=== PATIENT | female | born 1990 ===

== ENCOUNTER 2017-11-15 09:23 | Emergency (ER) | payer MEDICAID ==
[2017-11-15 09:24] VITALS: BMI 17.2
[2017-11-15 09:39] VITALS: BP 109/71; PULSE 89; RESP 16; TEMP 97; O2SAT 97
--- NOTE | 2017-11-15 09:54 | ED PDOC ---
HPI: Skin/Bite Injury Time Seen by Provider: 11/15/17 09:35 Chief Complaint (Nursing): Abnormal Skin Integrity History Per: Patient History/Exam Limitations: no limitations Onset/Duration Of Symptoms: Gradual (1 week), Worse Since (today) Location Of Injury: Right: Arm (axilla) Quality Of Symptoms: Painful, Swollen Severity: Moderate Additional History Per: Patient Additional Complaint(s): acc to pt she has an abscess in her right axilla x 1 week. similar sx in the past. chronically to axilla and groin. no f/c/n/v. Past Medical History Reviewed: Historical Data, Nursing Documentation, Vital Signs Vital Signs: Last Vital Signs Temp 97 F L 11/15/17 09:37 Pulse 89 11/15/17 09:37 Resp 16 11/15/17 09:37 BP 109/71 11/15/17 09:37 Pulse Ox 97 11/15/17 09:56 - Medical History PMH: Asthma Denies: Chronic Kidney Disease - Family History Family History: States: Unknown Family Hx - Living Arrangements Living Arrangements: With Family - Social History Drugs: Denies - Immunization History Hx Influenza Vaccination: Yes (up to date) Hx Pneumococcal Vaccination: No - Home Medications Home Medications: Ambulatory Orders Medication Instructions Recorded Doxycycline Monohydrate 100 mg PO BID 7 Days #14 capsule 11/15/17 Naproxen 500 mg PO BID PRN #20 tablet 11/15/17 - Allergies Allergies/Adverse Reactions: Allergies Allergy/AdvReac Type Severity Reaction Status Date / Time No Known Allergies Allergy Verified 11/15/17 09:31 Review of Systems ROS Statement: Except As Marked, All Systems Reviewed And Found Negative Constitutional: Negative for: Fever, Chills Cardiovascular: Negative for: Chest Pain Respiratory: Negative for: Cough, Shortness of Breath Gastrointestinal: Negative for: Nausea, Vomiting, Abdominal Pain Musculoskeletal: Positive for: Arm Pain (left axilla) Skin: Negative for: Rash Neurological: Negative for: Weakness, Numbness, Headache Physical Exam - Reviewed Nursing Documentation Reviewed: Yes Vital Signs Reviewed: Yes - Physical Exam Appears: Positive for: Uncomfortable Head Exam: Positive for: ATRAUMATIC, NORMAL INSPECTION, NORMOCEPHALIC Skin: Positive for: Normal Color, Warm, Dry. Negative for: Rash Eye Exam: Positive for: Normal appearance Neck: Positive for: Normal, Painless ROM, Supple. Negative for: Decreased ROM, Limited ROM, Trachea Midline Cardiovascular/Chest: Positive for: Regular Rate, Rhythm, Chest Non Tender. Negative for: Edema, Gallop, Bradycardia, Tachycardia Respiratory: Positive for: Normal Breath Sounds. Negative for: Decreased Breath Sounds, Accessory Muscle Use, Crackles, Rales, Rhonchi, Stridor, Wheezing Pulses-Radial (L): 2+ Pulses-Radial (R): 2+ Gastrointestinal/Abdominal: Positive for: Normal Exam, Bowel Sounds, Soft. Negative for: Tenderness Back: Positive for: Normal Inspection. Negative for: L CVA Tenderness, R CVA Tenderness Extremity: Positive for: Normal ROM, Other (moderate abscess to right axilla approx 4 cm, hand nvi mild erythema no surrounding cellulitis, hand nvi) Neurologic/Psych: Positive for: Alert, adult school teacher II-XII, Oriented. Negative for: Motor/Sensory Deficits - ECG O2 Sat by Pulse Oximetry: 97 Pulse Ox Interpretation: Normal - Progress ED Course And Treament: sx c/w hidradenitis supparative. will f/u in clinic, i&D perffered with resident using my supervision. pt agree's ith plan and leaves ambulatory and in good spirits. Re-evaluation Time: 11:20 Condition: Improved Disposition - Clinical Impression Clinical Impression: Abscess of axilla, right - Patient ED Disposition Is Patient to be Admitted: No Counseled Patient/Family Regarding: Studies Performed, Diagnosis, Need For Followup, Rx Given - Disposition Referrals: [facility] [place] [Outside] (3 days for wound check and packing removal) Disposition: Routine/Home Disposition Time: 11:35 Condition: GOOD Prescriptions: Doxycycline Monohydrate 100 mg PO BID 7 Days #14 capsule Naproxen 500 mg PO BID PRN #20 tablet PRN Reason: Pain, Moderate (4-7) Instructions: Abscess Incision and Drainage (DC) Forms: [employer] (Lithuanian) - Incision & Drainage Of Abscess Anesthesia: Lidocaine 1%, With Epi Prep Used: Sterile Water, Betadine Procedure: Incised W/Scalpel Blade#: (11), Drained Pus, Irrigated Cavity W/ Saline, Probed To Break Up Loculations, Packed W/Gauze, Cultures Obtained And Sent To Lab (performed with resident)
[2017-11-15] MEDS ORDERED: Oxycodone/Acetaminophen 5/325 mg Tab PO STA (10:32)
[2017-11-15] MEDS ORDERED: Oxycodone/Acetaminophen 5/325 mg Tab ONE (10:38)
[2017-11-15] MEDS ORDERED: Lidocaine/Epi 1% 1:100000 20 ML IJ ONE (10:49)
[2017-11-15] MEDS ORDERED: Lidocaine 1% w Epi 1:100,000 Inj ONE (10:55)
[2017-11-15] MEDS ORDERED: Povidone Iodine Oint 10% Foilpak UD ONE (11:05)
== END 2017-11-15 11:59 | disposition home or self-care (01) ==
LOC: H.ER 09:23
DX: L02.411 Cutaneous abscess of right axilla (principal)

== ENCOUNTER 2018-10-13 10:06 | Emergency (ER) | payer MEDICAID ==
[2018-10-13 10:11] VITALS: BMI 17.3
[2018-10-13 10:12] VITALS: BP 104/66; PULSE 91; RESP 17; TEMP 97.1; O2SAT 99
--- NOTE | 2018-10-13 10:44 | ED PDOC ---
HPI: Female Pain Chief Complaint (Provider): vaginal bleeding History Per: Patient History/Exam Limitations: no limitations Onset/Duration Of Symptoms: Days Current Symptoms Are (Timing): Better Associated Symptoms: denies: Fever, Chills, Nausea, Vomiting Additional History Per: Patient Additional Complaint(s): 28 yo F with asthma, at 10 wks gestational age by LMP 08/04/18, presenting to ED for evaluation of vaginal bleeding. [place] [facility] [place] when bleeding started, states that she had an u/s done there but was told it is too early to tell if it is a miscarriage. Pt states 4 days ago she had blood on her underwear; it is less now but has persisted for the last 4 days, present on toilet paper when she wipes. No cramping, no laura bleeding at this time. Also concerned that this blood/discharge is malodorous. States she has started to seek care. OBHx ; 3 full term c-sec deliveries Surg hx: 3 c-sec Medhx: asthma, uses albuterol inh 1x/mo on avg Social hx: smoker, 7 cig/day currently. denies alcohol/drug use Allergies: nkda Meds: PNV Last Menstral Period: 08/04/18 : 4 Para: 3 <Sharon Kuhn - Last Filed: 10/13/18 14:16> <Nasima Blanchard - Last Filed: 10/17/18 04:46> Chief Complaint (Nursing): Female Genitourinary Supervising Attending Note - Supervising Attending Note The Documented history was done by the: Physician Charge Master Analyst The documented physical exam was done by the: Physician Charge Master Analyst The documented procedures were done by the: Physician Charge Master Analyst - Attestation: I have personally seen and examined this patient.: Yes I have fully participated in the care of the patient.: Yes I have reviewed all pertinent clinical information, including history, physical exam and plan: Yes <Nasima Blanchard - Last Filed: 10/17/18 04:46> Past Medical History Vital Signs: Last Vital Signs Temp 97.1 F L 10/13/18 10:11 Pulse 91 H 10/13/18 10:11 Resp 17 10/13/18 10:11 BP 104/66 10/13/18 10:11 Pulse Ox 99 10/13/18 10:11 - Medical History PMH: Asthma Denies: Chronic Kidney Disease - Surgical History Surgical History: (x3) - Family History Family History: States: Unknown Family Hx - Social History Alcohol: None Drugs: Denies - Immunization History Hx Tetanus Toxoid Vaccination: No Hx Influenza Vaccination: No Hx Pneumococcal Vaccination: No <Sharon Kuhn - Last Filed: 10/13/18 14:16> Vital Signs: Last Vital Signs Temp 97.1 F L 10/13/18 10:11 Pulse 91 H 10/13/18 10:11 Resp 17 10/13/18 10:11 BP 104/66 10/13/18 10:11 Pulse Ox 99 10/13/18 14:16 <Nasima Blanchard - Last Filed: 10/17/18 04:46> - Home Medications Home Medications: Ambulatory Orders Medication Instructions Recorded Metronidazole [Metrogel-Vaginal] 1 ea VG HS #7 gel 06/07/18 Nitrofurantoin Macrocrystals 100 mg PO BID #14 cap 06/07/18 [Macrobid] Clindamycin [Cleocin] 300 mg PO BID #14 cap 10/13/18 - Allergies Allergies/Adverse Reactions: Allergies Allergy/AdvReac Type Severity Reaction Status Date / Time No Known Allergies Allergy Verified 06/07/18 14:18 Review of Systems ROS Statement: Except As Marked, All Systems Reviewed And Found Negative Genitourinary Female: Positive for: Vaginal Discharge, Vaginal Bleeding <Sharon Kuhn - Last Filed: 10/13/18 14:16> Physical Exam - Reviewed Vital Signs Reviewed: Yes - Physical Exam Appears: Positive for: No Acute Distress Head Exam: Positive for: ATRAUMATIC, NORMAL INSPECTION Skin: Positive for: Warm, Dry Eye Exam: Positive for: Normal appearance Cardiovascular/Chest: Positive for: Regular Rate, Rhythm. Negative for: Edema Respiratory: Positive for: Normal Breath Sounds. Negative for: Respiratory Distress Gastrointestinal/Abdominal: Positive for: Bowel Sounds, Soft. 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 Negative for: Active Bleed ing, Blood, Lesions Extremity: Positive for: Normal ROM. Negative for: Pedal Edema Neurologic/Psych: Positive for: Alert, Oriented <Sharon Kuhn - Last Filed: 10/13/18 14:16> - Laboratory Results Result Diagrams: 10/13/18 11:32 10/13/18 11:32 - ECG O2 Sat by Pulse Oximetry: 99 <Sharon Kuhn - Last Filed: 10/13/18 14:16> - Laboratory Results Result Diagrams: 10/13/18 11:32 10/13/18 11:32 Lab Results: Total Bilirubin 0.4 mg/dl (0.2-1.3) 10/13/18 11:32 AST 23 U/L (14-36) 10/13/18 11:32 ALT 31 U/L (9-52) 10/13/18 11:32 Alkaline Phosphatase 62 U/L (38-126) 10/13/18 11:32 Total Protein 7.1 G/DL (6.3-8.2) 10/13/18 11:32 Albumin 4.1 g/dL (3.5-5.0) 10/13/18 11:32 Globulin 2.9 gm/dL (2.2-3.9) 10/13/18 11:32 Albumin/Globulin Ratio 1.4 (1.0-2.1) 10/13/18 11:32 Urine Color Yellow (YELLOW) 10/13/18 11:32 Urine Clarity Cloudy (Clear) 10/13/18 11:32 Urine pH 7.0 (5.0-8.0) 10/13/18 11:32 Ur Specific [place] 1.019 (1.003-1.030) 10/13/18 11:32 Urine Protein Negative mg/dL (NEGATIVE) 10/13/18 11:32 Urine Glucose (UA) Neg mg/dL (NEGATIVE) 10/13/18 11:32 Urine Ketones Trace mg/dL (NEGATIVE) 10/13/18 11:32 Urine Blood Small (NEGATIVE) 10/13/18 11:32 Urine Nitrate Negative (NEGATIVE) 10/13/18 11:32 Urine Bilirubin Negative (NEGATIVE) 10/13/18 11:32 Urine Urobilinogen 0.2-1.0 mg/dL (0.2-1.0) 10/13/18 11:32 Ur Leukocyte Esterase Neg Dereck/uL (Negative) 10/13/18 11:32 Urine RBC (Auto) 3 /hpf (0-3) 10/13/18 11:32 Ur Squamous Epith Cells 15 /hpf (0-5) H 10/13/18 11:32 Amorphous Sediment Occ /ul (<OCC) H 10/13/18 11:32 <Nasima Blanchard - Last Filed: 10/17/18 04:46> Medical Decision Making Medical Decision Makin yo female with concern for vaginal bleeding x 4 days. 1130 - OB u/s - CBC - CMP - UA - Urine culture - Swabs for GC/CL and BV/Vaginitis sent 1400 - UA neg for LE, nitrate - OB us read:- IUP, ~10 weeks gestation, no evidence of cervical effacement or dilatation - GC/CL, BV are sendout Discussed with patient that cultures are send out and take several days. Suspected BV; will treat empirically. Flagyl contraindicated in 1st trimester; will treat with clindamycin instead. Advised close follow up with OB provider within the week; pt stated she may want to switch closer to here; given info for clinic and asked to bring all records if she chooses to switch. All above discussed w/ Dr. Blanchard. <Sharon Kuhn - Last Filed: 10/13/18 14:16> Disposition - Patient ED Disposition Is Patient to be Admitted: No - Disposition Disposition Time: 14:10 <Sharon Kuhn - Last Filed: 10/13/18 14:16> <Nasima Blanchard - Last Filed: 10/17/18 04:46> - Clinical Impression Clinical Impression: Vaginitis, - Disposition Referrals: [facility] [Provider Group] () [facility] Condition: STABLE Prescriptions: Clindamycin [Cleocin] 300 mg PO BID #14 cap Instructions: Bacterial Vaginosis, Medications and Forms: [employer] (Syrian)
[2018-10-13 11:51] LABS: HEMOGLOBIN 11.2 g/dL (12.0-16.0); MEAN CELL VOLUME 90.4 fl (81.0-99.0); MEAN CORPUSCULAR HEMOGLOBIN 29.9 pg (27.0-31.0); MEAN CORPUSCULAR HGB CONC 33.1 g/dL (33.0-37.0); RBC 3.74 Mil/uL (3.80-5.20); WHITE BLOOD COUNT 7.3 K/uL (4.8-10.8)
[2018-10-13 11:57] LABS: SQUAMOUS EPITHIAL 15 /hpf (0-5); URINE AMORPHOUS SEDIMENT OCC /ul (<OCC); URINE BILIRUBIN NEGATIVE (NEGATIVE); URINE BLOOD SMALL (NEGATIVE); URINE CLARITY CLOUDY (Clear); URINE COLOR YELLOW (YELLOW); URINE GLUCOSE (UA) NEG (NEGATIVE); URINE LEUKOCYTE ESTERASE NEG Leu/uL (Negative); URINE PROTEIN NEGATIVE (NEGATIVE); URINE UROBILINOGEN 0.2-1.0 mg/dL (0.2-1.0)
[2018-10-13 12:04] LABS: ALB/GLOB RATIO 1.4 (1.0-2.1); ALBUMIN 4.1 g/dL (3.5-5.0); ALT/SGPT 31 U/L (9-52); AST/SGOT 23 U/L (14-36); BLOOD UREA NITROGEN 9 mg/dl (7-17); CALCIUM 9.6 mg/dL (8.4-10.2); GFR NON-AFRICAN AMERICAN > 60
--- NOTE | 2018-10-13 13:43 | US ---
Date of service: 10/13/2018 PROCEDURE: Obstetrical ultrasound, limited. HISTORY: vaginal bleeding COMPARISON: None TECHNIQUE: Standard protocol for this study/examination. FINDINGS: LMP: 08/04/2018 Prior examinations from the current : None TECHNIQUE: Real-time 2D imaging, duplex and color Doppler. FINDINGS: Cardiac activity: Present Rate: 159 BPM Measurements: Lueders rump length: 2.76 cm Gestational age based on CRL 9 weeks 4 days Gestational age 10 weeks 1 day based on gestational sac measurement 4.56 cm Gestational age derived from LMP: 10 weeks KEVIN based on LMP: 05/11/2019 KEVIN based on biometry: 05/12/2019. Gestational concordance Yolk sac identified Cervix: No Cervical abnormalities: Negative examination for cervical dilatation or effacement. Closed cervix measuring 3.31 cm Subchorionic hemorrhage: None UTERUS: 8.9 x 7.4 x 10.2 cm. ADNEXA: Right: 2.7 x 3.7 x 5.4 cm. Normal Doppler arterial waveform documented. Left: 2.1 x 2.9 x 2.3 cm. Normal Doppler arterial waveform documented Fluid in the cul-de-sac: None IMPRESSION: Solitary live intrauterine gestation. Gestational concordance documented.
[2018-10-16 03:46] LABS: ATOPOBIUM VAGINAE Not Detected; BV CATEGORY SUPPORTIVE; LACTOBACILLUS SPECIES Not Detected
== END 2018-10-13 14:15 | disposition home or self-care (01) ==
LOC: H.ER 10:06
DX: O23.599 Infection of other part of genital tract in pregnancy, unspecified trimester (principal)